=== PATIENT | male | born 1935 | race Caucasian/White ===

== ENCOUNTER 2021-05-19 04:21 | Inpatient (IN) ==
[2021-05-19] MEDS ORDERED: Heparin - STEMI 5,000 UNITS/ML 1 ml VIAL IV ONE (04:24)
[2021-05-19] MEDS ORDERED: Furosemide 100 mg/10 ml IV VIAL IV ONE (04:24)
[2021-05-19] MEDS ORDERED: nitroGLYCERIN DRIP 25,000 MCG/250 ML BTL ONE ×2 (04:28→11:40)
[2021-05-19] MEDS ORDERED: Droperidol 5 MG/2 ML 2 ML VIAL IV ONE (04:32)
[2021-05-19] MEDS: nitroGLYCERIN DRIP 25,000 MCG in Premix IV 0 ML IV ONE ×2 (04:38→11:48)
[2021-05-19] MEDS ORDERED: Morphine 10 MG/ML VIAL (1 ml) IV ONE ×2 (04:39→05:17)
[2021-05-19 05:04] LABS: ABS Lymphocytes 2.2 10^3/ul (1.0-4.8); ABS Monocytes 0.6 10^3/ul (0-0.8); ABS Neutrophils 10.3 10^3/ul (1.5-7.7); Hematocrit 31 % (42-52); Hemoglobin 10.6 g/dL (14.0-18.0); Lymphocyte % 16.8 %; Mean Corpuscular HGB Conc 34 g/dL (31-36); Mean Corpuscular Hemoglobin 32 pg (27-31); Mean Corpuscular Volume 95 fL (80-94); Mean Platelet Volume 8.5 fL (7.4-10.4); Platelet Count 206 10^3/uL (150-450); Red Blood Count 3.28 10^6 /uL (4.18-5.48); Red Cell Distribution Width 14 % (10-15); White Blood Count 13.1 10^3/uL (3.5-10.8)
[2021-05-19 05:08] LABS: Rapid COVID-19 Molecular Undetected (Undetected)
[2021-05-19] MEDS ORDERED: Heparin DRIP 25,000 UNITS BAG 25,000 UNITS/500 ML BAG IV SCH (05:15)
[2021-05-19 05:22] LABS: ALT 14 U/L (7-52); AST 28 U/L (13-39); Albumin 4.3 g/dL (3.2-5.2); Albumin/Globulin Ratio 1.4 (1-3); Alkaline Phosphatase 88 U/L (35-149); Anion Gap 10 mmol/L (2-11); Blood Urea Nitrogen 31 mg/dL (6-24); CO2 Carbon Dioxide 20 mmol/L (22-32); Calcium 8.8 mg/dL (8.6-10.3); Chloride 105 mmol/L (101-111); EGFR African American 63.6 (>60); EGFR Non-African American 52.6 (>60); Glucose 219 mg/dL (70-100); LDL Cholesterol Direct 150 mg/dL; Magnesium 2.2 mg/dL (1.9-2.7); Potassium 4.8 mmol/L (3.5-5.0); Sodium 135 mmol/L (135-145); Total Protein 7.3 g/dL (6.4-8.9)
[2021-05-19 05:31] LABS: INR 1.13 (0.86-1.15)
[2021-05-19 05:39] LABS: Troponin I 0.52 ng/mL (<0.03)
[2021-05-19] MEDS ORDERED: Heparin 5000 UNITS/ML 1 mL VIAL IV SCH (06:00)
[2021-05-19] MEDS ORDERED: Metoprolol Tartrate 5 mg VIAL 5 ml VIAL (1 mg/ml) IV ONE ×2 (06:08→06:59)
[2021-05-19 06:31] LABS: PCO2 Arterial 39 mmHg (35-45); PO2 Arterial 95 mmHg (80-100)
[2021-05-19] MEDS ORDERED: Perflutren Lipid Microsphere 3 ML VIAL ONE (07:22)
[2021-05-19 08:30] LABS: Blood Urea Nitrogen 32 mg/dL (6-24); EGFR African American 52.7 (>60); EGFR Non-African American 43.6 (>60)
[2021-05-19 12:11] LABS: Troponin I 12.58 ng/mL (<0.03)
[2021-05-19] MEDS ORDERED: nitroGLYCERIN DRIP 25,000 MCG/250 ML BTL IV SCH (13:00)
[2021-05-19] MEDS ORDERED: Ondansetron 4 mg VIAL 2 MG/ML 2 ml VIAL IV PRN (15:23)
[2021-05-19] MEDS ORDERED: Ondansetron 4 mg VIAL 2 MG/ML 2 ml VIAL ONE (15:25)
[2021-05-19 16:21] LABS: Troponin I 36.84 ng/mL (<0.03)
[2021-05-19] MEDS ORDERED: Furosemide 40 mg/4 ml IV VIAL ONE (19:45)
[2021-05-19] MEDS ORDERED: Furosemide 40 mg/4 ml IV VIAL IV SLOW PU ONE (19:48)
[2021-05-19] MEDS ORDERED: Bumetanide IV 0.25 MG/ML 4 ml VIAL (1 mg) SLOW PUSH ONE (22:09)
[2021-05-19 22:20] LABS: Troponin I 61.06 ng/mL (<0.03)
[2021-05-19 22:37] VITALS: BP 113/66
== END 2021-05-19 22:03 | disposition short-term general hospital (02) | DRG 280 ==
LOC: ED 04:21 → ICU 09:34
PROVIDERS: ADMIT Internal Medicine; ATTEND Internal Medicine